=== PATIENT | female | born 1970 | race African-American/Black ===

== ENCOUNTER 2025-06-30 17:22 | Emergency (ER) | payer OTHER, MEDICAID ==
[~2025-06-30] VITALS: Ht 165.1 cm; Wt 86.4 kg
[2025-06-30 17:22] VITALS: BP 202/133; PULSE 102; RESP 22; TEMP 99.2; O2SAT 95
--- NOTE | 2025-06-30 17:47 | ED.PDOC ---
History of Present Illness HPI Comments This is a pleasant but severely morbidly obese 54 year-old female who presents to the ED via EMS with a chief complaint of R upper extremity pain with associated itchiness as of recently. Per EMS, patients daughter called and there is tension between family members. Per EMS, patient read hypertensive on scene with initial blood pressure of 202/133. Patients initial saturation was 89% on room air. Patient was placed on 3 liters upon arrival to the ED, saturation increased to 95%. Patient states she is normally on 3 liters of oxygen at home due to advanced COPD. Patient denies taking her medications today. Patient has no further complaints and otherwise denies chest pain, palpitations, N/V/D, cough, fever, or chills. Chief Complaint: High Blood Pressure Time Seen by MD: 17:27 Reviewed Notes: Nurses Notes, Business Partner Notes, Medications, Allergies Allergies: Coded Allergies: NO KNOWN ALLERGIES (Unverified , 06/30/25) Information Source: Patient, Emergency Med Personnel Mode of Arrival: EMS Severity: Moderate Timing: Minutes Duration: Since onset Prehospital treatment: None Past Medical History PAST MEDICAL HISTORY: DM, High Lipids, HTN Surgical History: Denies all surgeries SERVICE GREETER History: No Pertinent SERVICE GREETER History Family History Family History: Reviewed,noncontributory to illness, No family hx of Cancer, No family hx of DM, No family hx of Heart leo, No family hx of HTN, No family hx ofKidney leo, No family hx of Liver leo, No family hx of Lung leo, No family hx of Stroke Social History Smoker: Non-Smoker Alcohol: Denies ETOH Use Drugs: Denies Drug Use Lives In: Home Constitutional: denies: chills, diaphoresis, fatigue, fever, malaise, sweats, weakness, others EENTM: denies: blurred vision, double vision, ear bleeding, ear discharge, ear drainage, ear pain, ear ringing, eye pain, eye redness, hearing loss, mouth pain, mouth swelling, nasal discharge, nose bleeding, nose congestion, nose pain, photophobia, tearing, throat pain, throat swelling, voice changes, others Respiratory: denies: cough, hemoptysis, orthopnea, SOB at rest, shortness of breath, SOB with excertion, stridor, wheezing, others Cardiovascular: denies: chest pain, dizzy spells, diaphoresis, Dyspnea on exertion, edema, irregular heart beat, left arm pain, lightheadedness, palpitations, PND, syncope, others Gastrointestinal: denies: abdomen distended, abdominal pain, blood streaked bowels, constipated, diarrhea, dysphagia, difficulty swallowing, hematemesis, melena, nausea, poor appetite, poor fluid intake, rectal bleeding, rectal pain, vomiting, others Genitourinary: denies: abnormal vagina bleeding, burning, dyspareunia, dysuria, flank pain, frequency, hematuria, incontinence, pain, , vagina discharge, urgency, others Neurological: denies: dizziness, fainting, headache, left sided numbness, left sided weakness, numbness, paresthesia, pre-existing deficit, right sided numbness, right sided weakness, seizure, speech problems, tingling, tremors, weakness, others Musculoskeletal: reports: others (R Arm Pain ); denies: back pain, gout, joint pain, joint swelling, muscle pain, muscle stiffness, neck pain Integumetry: reports: others (right arm itchiness ); denies: bruises, change in color, change in hair/nails, dryness, laceration, lesions, lumps, rash, wounds Allergic/Immunocompromised: denies: Difficulty Healing, Frequent Infections, Hives, Itching, others Hematologic/Lymphatic: denies: anemia, blood clots, easy bleeding, easy bruising, swollen glands, others Endocrine: denies: excessive hunger, excessive sweating, excessive thirst, excessive urination, flushing, intolerance to cold, intolerance to heat, unexplained weight gain, unexplained weight loss, others Psychiatric: denies: anxiety, bipolar disorder, depression, hopeless, panic disorder, schizophrenia, sleepless, suicidal, others All Other Systems: Reviewed and Negative Physical Exam General Appearance: Mild Distress (Moderate distress due to right arm pain concerns.), Obese HEENT: Normal ENT Inspection, Pharynx Normal, TMs Normal Neck: Full Range of Motion, Non-Tender, Normal, Normal Inspection Respiratory: Chest Non-Tender, Lungs Clear, No Accessory Muscle Use, No Respiratory Distress, Normal Breath Sounds Cardiovascular: No Edema, No JVD, No Murmur, No Gallop, Normal Peripheral Pulses, Regular Rate/Rhythm Breast Exam: Deferred Gastrointestinal: No Organomegaly, Non Tender, No Pulsatile Mass, Normal Bowel Sounds, Soft Genitalia: Deferred Pelvic: Deferred Rectal: Deferred Extremities: Other (Posterior aspect of the right arm reveals a large ecchymotic patch that consumed was most of the triceps region. No erythema or edema noted in distal right arm. Reasonable range of motion displayed.) Neurologic: Alert Cerebellar Function: NOT DONE Reflexes: NOT DONE Skin: Dry, Normal Color, Warm Lymphatic: No Adenopathy Was a procedure done? Was a procedure done?: No Differential Dx Considerations may include: DVT, cellulitis, electrolyte abnormality, hypertensive urgency X-Ray, Labs, Meds, VS Vital Signs Date Time Temp Pulse Resp B/P (MAP) Pulse Ox O2 Delivery O2 Flow Rate FiO2 06/30/25 17:22 99.2 102 22 202/133 95 99.2 Lab Test 06/30/25 20:33 06/30/25 18:35 06/30/25 17:45 Range/Units Troponin I High Sensitivity 24 27 25 </=34 ng/L White Blood Count 10.2 4.4-10.8 10^3/uL Red Blood Count 5.40 H 4.0-5.20 10^6/uL Hemoglobin 16.9 H 12.2-16.2 g/dL Hematocrit 49.5 H 36.0-46.0 % Mean Corpuscular Volume 91.6 80.0-100.0 fL Mean Corpuscular Hemoglobin 31.2 28.0-32.0 pg Mean Corpuscular Hemoglobin Concent 34.1 32.0-36.0 g/dL Red Cell Distribution Width 15.9 H 11.8-14.3 % Platelet Count 177 140-450 10^3/uL Mean Platelet Volume 10.2 6.9-10.8 fL Neutrophils (%) (Auto) 74.4 37.0-80.0 % Lymphocytes (%) (Auto) 13.1 10.0-50.0 % Monocytes (%) (Auto) 10.2 0.0-12.0 % Eosinophils (%) (Auto) 1.3 0.0-7.0 % Basophils (%) (Auto) 1.0 0.0-2.0 % Neutrophils # (Auto) 7.6 1.6-8.6 10 ^3/uL Lymphocytes # (Auto) 1.3 0.4-5.4 10 ^3/uL Monocytes # (Auto) 1.0 0-1.3 10 ^3/uL Eosinophils # (Auto) 0.1 0-0.8 10 ^3/uL Basophils # (Auto) 0.1 0-0.2 10 ^3/uL Nucleated Red Blood Cells 0.1 % Prothrombin Time 11.5 9.3-11.8 sec Prothrombin Time INR 1.09 0.9-1.15 Activated Partial Thromboplast Time 30.2 24.5-34.5 SEC Sodium Level 145 136-145 mmol/L Potassium Level 3.4 L 3.5-5.1 mmol/L Chloride Level 103 98-107 mmol/L Carbon Dioxide Level 33 H 20-31 mmol/L Anion Gap 9 5-15 Blood Urea Nitrogen 24 H 9-23 mg/dL Creatinine 1.05 H 0.550-1.02 mg/dL Glomerular Filtration Rate Calc 64 >90 mL/min BUN/Creatinine Ratio 22.9 H 10.0-20.0 Serum Glucose 95 74-106 mg/dL Calcium Level 9.2 8.7-10.4 mg/dL B-Type Natriuretic Peptide 48.20 0-100 pg/mL [place] [address] Ph: [phone] DIAGNOSTIC IMAGING Diagnostic Imaging Report : [id number] Signed PATIENT: BALA ADAMS ACCT: [id number] UNIT: [id number] : 1970 LOC: ER ROOM / BED: / AGE / SEX: 54 / F ADM STATUS: REG ER SERVICE [id number] ORDERING PHYSICIAN: HILDA HERZOG PAC PROCEDURE(s): RUDVT - Rt Upper DVT REASON: SWELLING ORDER NUMBER(s): [id number], ACCESSION NUMBER(s): [id number] CLINICAL HISTORY: SWELLING COMPARISON: None FINDINGS: Compression evaluation and color Doppler evaluation of the deep veins of the right upper extremity was performed. Evaluation for augmentation and flow characteristics with doppler pulse wave imaging was performed. This examination demonstrates normal compression, augmentation, and phasic flow of the right upper extremity with no evidence for echogenic thrombus within the internal jugular, subclavian, axillary, brachial, radial, and ulnar veins. The right basilic vein and cephalic veins demonstrated normal compression and color flow. In addition, the contralateral/left subclavian vein demonstrates normal augmentation and Doppler flow characteristics. IMPRESSION: 1. There is no evidence for DVT in the right upper extremity. ATED BY: EDMOND ANTON MD DICTATED DATE/TIME: 06/30/251837 SIGNED BY: EDMOND ANTON MD SIGNED DATE/TIME: 06/30/251837 CC: X-Ray, Labs, Meds, VS Comment All studies performed the ED were evaluated by me personally. Serum laboratories and urinalysis was unremarkable for any systemic concerns. Doppler of the right upper extremity was unremarkable for any DVT formation. Patient appears to have a contusion of the arm as well as blood pressure management concerns. Patient's blood pressure was returning to an acceptable range at time of discharge. Advised patient utilize emergent medication as needed and additionally, follow up with the primary care provider for discussions related to today's visit as well as improved management of what appears to be poorly controlled hypertension. Images Reviewed?: Images reviewed and evaluated by me Time of 1ST Reevaluation: 21:58 Reevaluation 1ST: Improved Consultation: PCP Patient Education/Counseling: Diagnosis, Treatment Family Education/Counseling: Diagnosis, Treatment, No Family Present Medical Screening: No EMC Exist At This Time SEPSIS Sepsis Screen Date sepsis recognized/suspect: Jun 30, 2025 Time Sepsis recognized/suspect: 1720 Recent Procedure: No On Antibiotic Therapy: No Respiratory Rate >20: Yes Heart Rate >90: Yes Temp<36 C (96.8 F) or >38.3 C: No SBP <90 or MAP <65 mmHG: No New Acute Mental Status Change: No Is the patient on CPAP, BIPAP,: No Physician Orders Electrocardigram (06/30/25 17:32) Rt Upper Dvt (06/30/25 17:32) Vital Signs Date Time Temp Pulse Resp B/P (MAP) Pulse Ox O2 Delivery O2 Flow Rate FiO2 06/30/25 17:22 99.2 102 22 202/133 95 99.2 Laboratory Tests Test 06/30/25 17:45 White Blood Count 10.2 10^3/uL (4.4-10.8) Departure 1 Departure Time of Disposition: 21:59 Impression: Primary Impression: Hypertensive urgency Additional Impression: Contusion, arm, upper Disposition: 01 HOME / SELF CARE / HOMELESS Condition: Stable Additional Instructions: Advised patient utilize medication as needed for blood pressure assistance as well as follow up with the primary care provider for discussions related to improved blood pressure management. e-Prescriptions Clonidine Hydrochloride (Clonidine Hcl) 0.2 Mg Tab 1 TAB PO Q12HP PRN, #20 TAB 0 Refills To be used if systolic blood pressure is above 160 or diastolic pressure is above 90. Prov: ROSENDAHILDA B PAC 06/30/25 Discharged With: Self, Friend Critical Care Note Critical Care Time?: No Stability Stability form required: No Heart Score Heart Score: Heart Score Response (Comments) Value History N/A 0 EKG N/A 0 Age N/A 0 Risk Factors N/A 0 Troponin N/A 0 Total 0 I personally scribed for ROSENDA,HILDA B PAC ([email or web address]) on 06/30/25 at 17:47. Electronically submitted by Claudia Baca ([email or web address]). I personally scribed for ROSENDA,HILDA B PAC ([email or web address]) on 06/30/25 at 17:50. Electronically submitted by Claudia Baca ([email or web address]). I personally scribed for ROSENDA,HILDA B PAC ([email or web address]) on 06/30/25 at 18:09. Electronically submitted by Claudia Baca ([email or web address]). I personally scribed for ROSENDA,HILDA B PAC ([email or web address]) on 06/30/25 at 19:28. Electronically submitted by Claudia Baca ([email or web address]). I personally scribed for ROSENDA,HILDA B PAC ([email or web address]) on 06/30/25 at 20:19. Electronically submitted by Claudia Baca ([email or web address]). ROSENDA,HILDA B PAC Jun 30, 2025 17:47
[2025-06-30 18:03] LABS: Hematocrit 49.5 % (36.0-46.0); Hemoglobin 16.9 g/dL (12.2-16.2); Mean Corpuscular Hemoglobin 31.2 pg (28.0-32.0); Mean Corpuscular Volume 91.6 fL (80.0-100.0); Nucleated Red Blood Cells % 0.1 %
[2025-06-30 18:09] LABS: Chloride 103 mmol/L (98-107); Sodium 145 mmol/L (136-145)
[2025-06-30 18:10] LABS: Anion Gap 9 (5-15); Calcium 9.2 mg/dL (8.7-10.4)
[2025-06-30 18:15] LABS: BUN/Creatinine Ratio 22.9 (10.0-20.0); Blood Urea Nitrogen 24 mg/dL (9-23); Carbon Dioxide 33 mmol/L (20-31); Glucose 95 mg/dL (74-106); Potassium 3.4 mmol/L (3.5-5.1)
[2025-06-30 18:21] LABS: INR 1.09 (0.9-1.15); Partial Thromboplastin Time 30.2 SEC (24.5-34.5); Prothrombin Time 11.5 sec (9.3-11.8)
--- NOTE | 2025-06-30 18:40 | DVH ---
CLINICAL HISTORY: SWELLING COMPARISON: None FINDINGS: Compression evaluation and color Doppler evaluation of the deep veins of the right upper ex tremity was performed. Evaluation for augmentation and flow characteristics with doppler pulse wave i maging was performed. This examination demonstrates normal compression, augmentation, and phasic flow of the right upper ex tremity with no evidence for echogenic thrombus within the internal jugular, subclavian, axillary, br achial, radial, and ulnar veins. The right basilic vein and cephalic veins demonstrated normal compre ssion and color flow. In addition, the contralateral/left subclavian vein demonstrates normal augment ation and Doppler flow characteristics. IMPRESSION: 1. There is no evidence for DVT in the right upper extremity.
[2025-06-30] MEDS ORDERED: CLON0.2T PO (22:00)
== END 2025-06-30 22:01 | disposition left against medical advice (07) ==
LOC: EDBD 17:22 → ER 17:22
DX: S40.021A Contusion of right upper arm, initial encounter (principal); I16.0 Hypertensive urgency; I10 Essential (primary) hypertension; E11.9 Type 2 diabetes mellitus without complications; X58.XXXA Exposure to other specified factors, initial encounter; Y93.89 Activity, other specified; Y92.89 Other specified places as the place of occurrence of the external cause; Y99.8 Other external cause status
CPT/HCPCS: 36415; 80048; 83880; 84484; 85025; 85610; 85730; 93971